=== PATIENT | female | born 2000 | race Caucasian/White ===

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

== ENCOUNTER 2022-09-21 09:35 | Emergency (ER) | payer OTHER, SELFPAY ==
--- NOTE | ~2022-09-21 | XR_ITS ---
EXAMINATION: XR chest 2V 09/21/2022 10:08 INDICATION: Shortness of breath and chest pain PROCEDURE: 2 view chest COMPARISON: No prior studies for comparison. FINDINGS: The lungs are clear. The cardiomediastinal silhouette is within normal limits. There are no pleural effusions. There is no pneumothorax suspected. IMPRESSION: 1: NO ACUTE CARDIOPULMONARY DISEASE. Reviewed, dictated and finalized at location L.
[2022-09-21 09:42] VITALS: BP 117/90; PULSE 88; RESP 20; TEMP 36.7; O2SAT 100
--- NOTE | 2022-09-21 10:04 | ED.CHESTPAIN ---
HPI - Chest Pain General Chief Complaint: Chest Pain Stated Complaint: sob of chest pain History of Present Illness HPI narrative: Pt is a 22 y/o female, presents to with diffuse anterior chest wall pain that she noticed after she woke this morning and got up moving. Pain is sharp, worse with movement, a deep breath and lying down or rolling onto her side. She denies recent cough or viral syndrome. She does recall having similar pain in the past when she was ill but denies seeking evaluation at that time and she notes her pain resolved. She denies associated SOB at present but states painful breathing does cause her to breath more shallowly. She has no GERD symptoms, nausea, abdominal pain or urinary symptoms. She has not taken any OTC medications for symptom relief. She is on OCP. She does not smoke. She has no hx of PE or DVT. She denies chance of Related Data Home Medications Medication Instructions Recorded Confirmed norethindrone 1 mg-ethinyl 1 tablet PO DAILY 06/26/21 09/21/22 estradiol 10 mcg (24)-iron 10 mcg(2) tablet (Lo Loestrin Fe) Allergies Allergy/AdvReac Type Severity Reaction Status Date / Time No Known Allergies Allergy Mild Verified 09/21/22 09:56 Review of Systems Constitutional: Comments: denies fevers, chills ,malaise, or recent URI/illness Cardiovascular: Comments: refer to HPI Respiratory: Comments: refer to HPI Musculoskeletal: Comments: refer to HPI [facility] Past Medical History Medical History Pneumonia Surgical History Surgical History (Updated 06/26/21 @ 15:06 by Karime Joyce NP) Status post tonsillectomy and adenoidectomy Social History Social History (Updated 06/26/21 @ 15:45 by Karime Joyce NP) Smoking status: Never smoker Alcohol intake: never Substance use: never Living arrangements: dorm student housing Occupation/Education: student Gender identity (if verbalized by the patient): Female Exam Const: General: healthy appearing, no acute distress and alert Orientation/consciousness: patient oriented x3 Limitations: no limitations HENMT: Head: normal to inspection Face and sinus: normal facial exam Mouth: Yes Normal oral and palatal mucosa present, Yes lip normal and Yes moist mucous membranes Eyes: Conjunctivae: conjunctivae normal Pupils: Equal, round and reactive pupils present EOM: EOMs intact bilaterally Neck: Neck: normal visual inspection, no lymphadenopathy and no meningeal signs Chest: Chest palpation & inspection: normal inspection of the chest and tenderness (Pt is TTP over the sternum and along the the costal-sternal margin bilat.) Other: no crepitus or subq emphysema noted Resp: Effort & Inspection: normal respiratory effort Auscultation: clear to auscultation bilaterally Cardio: Rate: regular rate Rhythm: regular rhythm Other: no murmur GI: Auscultation: normal bowel sounds Other: negative Murpy's sign Back/Spine/Pelvis: Back: no CVA tenderness Neuro: General: patient oriented x3 Cranial nerves: Yes Nystagmus not present Speech: normal speech Gait exam (Neuro): Normal gait present Extrem: Other: no calf TTP, no palpable cord Psych: Mental Status: mental status grossly normal Affect: normal affect Course Course Emergency Course: PLAN: CXR to R/O early infectious process/pneumothorax. She is of low conern for PE as her symptoms are reproducible with movement and her only risk factor is OCP therapy. Pt is provided Ibuprofen here as she has not treated her symptoms. Level of Care: Express Care Visit ([id number]) Vital Signs Vital signs: Vital Signs Temperature 36.7 C 09/21/22 09:42 Pulse Rate 88 09/21/22 09:42 Respiratory Rate 20 09/21/22 09:42 Blood Pressure 117/90 09/21/22 09:42 Pulse Oximetry 100 09/21/22 09:42 Oxygen Delivery Room Air 09/21/22 09:42 Temper
[2022-09-21] MEDS: IBUPROFEN 600 MG TABLET PO (10:15)
== END 2022-09-21 10:34 | disposition home or self-care (01) ==
PROVIDERS: Emergency Provider Nurse Practitioner Family
DX: M94.0 Chondrocostal junction syndrome [Tietze] (principal)
CPT/HCPCS: 71046; 99213; A9270; G0463